=== PATIENT | female | born 1970 | race African-American/Black ===

== ENCOUNTER 2016-06-19 08:46 | Emergency (ER) ==
--- NOTE | 2016-06-19 10:15 | PROVIDER DOCUMENTATION ---
HPI-General Adult - General Chief Complaint: Weakness Stated Complaint: LIGHTHEADED/SHAKES Time Seen by Provider: 06/19/16 09:56 Source: patient Allergies/Adverse Reactions: Patient Allergies Allergy/AdvReac Type Severity Reaction Status Date / Time egg Allergy ITCHING Verified 06/02/16 06:47 latex Allergy HIVES Verified 06/19/16 08:50 tomato [Tomato] Allergy ITCHING Verified 06/02/16 06:47 - History of Present Illness -Gen Adult Nature of Presenting Problems: Reports to er with cc of cough and sinus congestion x 4 days with episodes of lightheadness and headache that started last night. Reports subjective fever at night. Denies n,v,d. Location of Pain/Injury: reports: head Quality of Pain: reports: aching Severity: reports: moderate Onset/Duration: reports: 4 days ago Timing: reports: still present Similar Symptoms Previously?: No Recently seen or treated by another doctor?: No Review of Systems - Adult - REVIEW OF SYSTEMS - ADULT Constitutional: reports: fever. denies: chills, fatique, night sweats Eyes: reports: no symptoms reported Ears, Nose, Mouth & Throat: reports: sinus problem. denies: ear pain, throat pain Cardiovascular: denies: chest pain, irregular heart rate, orthopnea, syncope Respiratory: reports: cough. denies: pleurisy, shortness of breath, wheezing Gastrointestinal: reports: no symptoms reported Genitourinary: denies: dysuria, frequent UTI's, urgency Musculoskeletal: reports: no symptoms reported Integumentary: reports: no symptoms reported Neurological: reports: headache/migraines. denies: loss of balance, numbness, paresthesia Psychiatric: reports: no symptoms reported Endocrine: reports: no symptoms reported Hematologic/Lymphatic: reports: no symptoms reported Allergic/Immunologic: reports: no symptoms reported All Other Systems: Reviewed and Negative Past History - Adult - PAST MEDICAL HISTORY-ADULT Review of Records: reports: Nursing Assessment Review Major Childhood Illnesses: reports: denies history Cardiovascular: reports: denies history Respiratory: reports: asthma, COPD Gastrointestinal: reports: GERD Obstetrical/Gynecological: reports: fibroids, other (painful menses) Psychiatric: reports: anxiety Endocrine/Immune: reports: denies history - PRIOR SURGERIES/PROCEDURES Surgical/Procedure History: reports: BTL, - PRIOR HOSPITALIZATIONS Prior Hospitalizations: reports: none - IMMUNIZATION STATUS Childhood Immunizations: See Nurse Assessment Flu Vaccine: See Nurse Assessment - FAMILY HISTORY Family History: reviewed, not pertinent - SOCIAL HISTORY Smoking: denies Substance Use: none/never Alcohol Use Frequency: never Physical Exam-General - PHYSICAL EXAM-ADULT Initial Vital Signs Reviewed: Yes - CONSTITUTIONAL General Appearance: appears well, alert, no apparent distress - EYES Eyes: PERRL/EOMI, pink conjunctivae - HEAD, EARS, NOSE, MOUTH & THROAT HENMT: normocephalic/atraumatic, moist mucous membranes, normal ENT inspection - NECK Neck: non-tender, full range of motion, normal inspection - RESPIRATORY Respiratory: chest non-tender, lungs clear, normal breath sounds - CARDIOVASCULAR Cardiovascular: normal peripheral pulses, regular rate, rhythm, no edema - GASTROINTESTINAL (ABDOMEN) Abdominal Exam: normal bowel sounds, non tender, soft - LYMPHATIC Lymphatic: no adenopathy - MUSCULOSKELETAL Back Exam: normal inspection, no CVA tenderness, no vertebral tenderness Extremity: normal range of motion, non-tender, normal gait - SKIN Integumentary: normal color, normal turgor, warm/dry - NEUROLOGIC Neurologic: grossly normal, no motor/sensory deficits - PSYCHIATRIC Psych/Mental Status: normal mood/affect, normal thought content, normal thought process, oriented x 3 Progress - PLAN OF CARE/RESULTS Progress/Plan/Lab Results: Orders Category Date Time Status CHEST-2 VIEWS [RAD] Stat Exams 06/19/16 10:[address] [URINALYSIS] Stat Lab 06/19/16 09:35 [address] DRUG S[address]EN [address] Stat Lab 06/19/16 09:56 Ordered Vital Signs - 24 hr 06/19/16 08:48 Temperature 98.5 F Pulse Rate 95 H Respiratory 18 Rate Blood Pressure 155/097 O2 Sat by Pulse 100 Oximetry - XRAY 1 XRAY: Bilateral XRAY Study: Chest Impression: Normal XRAY Interpretation: nad Departure - Departure Time of Disposition Order: 10:30 DIAGNOSIS: URI (upper respiratory infection) Qualifiers: URI type: unspecified URI Qualified Code(s): J06.9 - Acute upper respiratory infection, unspecified Disposition: HOME 01 Certified Medical Emergency: Emergent Condition: Stable Additional Instructions: ED Follow Up Instructions: You have been treated by a care provider in the Emergency Department. These instructions are being provided to you so you can have an understanding of how to care for yourself upon discharge. Upon discharge from the Emergency Department, you are responsible for making arrangements for follow-up care by a physician of your choice. Take all prescribed medications as directed. Return to the Emergency Department immediately for any new or worsening symptoms. You may call the Physician Referral phone number at [phone] to obtain a list of Physicians who are taking new patients. Prescriptions: Prednisone 20 mg PO DAILY #5 tablet Azithromycin [Zithromax Z-James] 250 mg PO DIRECTED #1 pkg Referrals: Niurka Jalloh MD [STAFF PHYSICIAN] - None,PCP [Primary Care Provider] - Forms: Return to School/Parent Work Instructions: Cough, Adult, [id number], Azithromycin tablets, Upper Respiratory Infection, Adult, [id number], Prednisone tablets Attestation - Scribe Verification/Attestation Scribe:: Maicol Segura Acting as Scribe for:: Radha Trammell Scribe documention review:: This chart was documented by a scribe and accurately reflects the service the provider performed and the decisions made by the provider.
--- NOTE | 2016-06-19 10:29 | Diag Imaging Result Document ---
PROCEDURE NAME: CHEST-2 VIEWS - 06/19/2016 PA AND LATERAL RADIOGRAPH OF THE CHEST: COMPARISON: 05/20/2013. FINDINGS: The lungs are grossly clear. There is no discrete pleural fluid collection or evidence of pneumothorax. The cardiomediastinal silhouette and upper airway are grossly unremarkable. IMPRESSION: No evidence of acute chest pathology.
[2016-06-19] MEDS ORDERED: DECADRON IM ONE (11:15)
[2016-06-19 11:38] VITALS: BP 134/96
== END 2016-06-19 11:47 | disposition home or self-care (01) ==
LOC: P.ED 08:46
DX: J06.9 Acute upper respiratory infection, unspecified (principal); R05 Cough; R09.81 Nasal congestion; R42 Dizziness and giddiness; R51 Headache; R50.9 Fever, unspecified; J44.9 Chronic obstructive pulmonary disease, unspecified; J45.909 Unspecified asthma, uncomplicated; Z79.899 Other long term (current) drug therapy
CPT/HCPCS: 71020; 96372